=== PATIENT | female | born 1985 | race Caucasian/White ===

== ENCOUNTER 2017-09-03 17:22 | Emergency (ER) | payer BC | END 2017-09-03 18:33 | disposition home or self-care (01) | LOC: ER 17:22 | DX: M54.32 Sciatica, left side (principal); M54.31 Sciatica, right side; F17.200 Nicotine dependence, unspecified, uncomplicated; Z88.2 Allergy status to sulfonamides; Z88.6 Allergy status to analgesic agent | CPT/HCPCS: 99283 ==